=== PATIENT | male | born 1965 | race Caucasian/White ===

== ENCOUNTER 2021-09-08 08:09 | Emergency (ER) | payer OTHER ==
[2021-09-08 08:47] LABS: BASOPHIL 2.6 % (0-2); EOSINOPHIL 3.7 % (0-5); HCT 33.7 % (42.0-52.0); HGB 11.5 g/dl (13.2-18.0); LYMPHOCYTE 17.5 % (15-48); MCH 35.5 pg (25.0-31.0); MCHC 34.1 g/dL (32.0-36.0); MONOCYTE 17.3 % (0-12); MPV 8.5 fL (6.0-9.5); NEUTROPHIL 58.5 % (41-80); NRBC 0; PLT 199 K/uL (150-400); RBC 3.24 M/uL (4.70-6.00); RDW 14.2 % (11.5-14.0); WBC 4.6 K/uL (4.0-10.5)
[2021-09-08 09:01] LABS: ALBUMIN 3.2 g/dL (3.4-5.0); ALKALINE PHOSHATASE 76 U/L (46-116); ALT 62 U/L (16-63); AST 84 U/L (15-37); BILIRUBIN - TOTAL 1.5 mg/dL (0.2-1.0); BUN 6 mg/dL (7-18); BUN/CREAT RATIO (CALC) 11.1 RATIO; CHLORIDE 96 mmol/L (98-107); CO2 (BICARBONATE) 22 mmol/L (21-32); CREATININE 0.54 mg/dL (0.67-1.17); GLOBULIN (CALCULATION) 4.7 g/dL; GLUCOSE 115 mg/dL (74-106); POTASSIUM 3.7 mmol/L (3.5-5.1); TOTAL PROTEIN 7.9 g/dL (6.4-8.2)
[2021-09-08] MEDS ORDERED: KEPPRA XR500 MG PO (09:32)
== END 2021-09-08 09:51 | disposition home or self-care (01) ==
LOC: FER 08:09
PROVIDERS: Emergency Medicine
DX: G40.409 Other generalized epilepsy and epileptic syndromes, not intractable, without status epilepticus (principal); E87.1 Hypo-osmolality and hyponatremia; Z28.310 Unvaccinated for COVID-19
CPT/HCPCS: 36415; 70450; 80053; 85025; G0480